=== PATIENT | female | born 1940 | race Caucasian/White ===

== ENCOUNTER → 2019-03-14 | Outpatient (CLI) | payer MEDICARE, OTHER | LOC: M.RAD 10:46 | DX: M17.12 Unilateral primary osteoarthritis, left knee (principal); Z88.8 Allergy status to other drugs, medicaments and biological substances; Z88.1 Allergy status to other antibiotic agents; Z88.2 Allergy status to sulfonamides ==

== ENCOUNTER → 2019-03-18 | Outpatient (CLI) | payer MEDICARE, OTHER | LOC: M.ULTRA 09:29 | DX: I71.4 Abdominal aortic aneurysm, without rupture (principal); Z88.8 Allergy status to other drugs, medicaments and biological substances; Z88.1 Allergy status to other antibiotic agents; Z88.2 Allergy status to sulfonamides ==

== ENCOUNTER → 2021-04-02 | Outpatient (CLI) | payer MEDICARE, OTHER | LOC: M.RAD 15:54 | PROVIDERS: ATTEND Internal Medicine | DX: M17.0 Bilateral primary osteoarthritis of knee (principal); M76.9 Unspecified enthesopathy, lower limb, excluding foot ==